=== PATIENT | female | born 2000 | race Hispanic/Latino ===

== ENCOUNTER 2019-01-27 01:49 | Emergency (ER) | payer MEDICAID ==
[2019-01-27 02:21] VITALS: BP 111/77; PULSE 85; RESP 16; TEMP 98.2; O2SAT 100
--- NOTE | 2019-01-27 02:38 | ED PDOC ---
HPI: Abdomen Time Seen by Provider: 01/27/19 02:25 Chief Complaint (Nursing): Abdominal Pain Chief Complaint (Provider): abdominal pain History Per: Patient History/Exam Limitations: no limitations Onset/Duration Of Symptoms: Days (2) Current Symptoms Are (Timing): Still Present Location Of Pain/Discomfort: RLQ, LLQ, Suprapubic Quality Of Discomfort: Cramping Associated Symptoms: Nausea Additional Complaint(s): 18 y/o female presents for evaluation of lower abdominal pain x 2 days. Associa becca nausea. Patient states she has not had her menstrual period since the beginning of September; states she was evaluated by her Test Clerk at [place] and had an ultrasound and was told everything was normal. Denies fever, headache, vomiting, chest pain, shortness of breath, palpitations, urinary symptoms, vaginal bleeding/discharge. Past Medical History Reviewed: Historical Data, Nursing Documentation, Vital Signs Vital Signs: Last Vital Signs Temp 98.2 F 01/27/19 02:18 Pulse 85 01/27/19 02:18 Resp 16 01/27/19 02:18 BP 111/77 01/27/19 02:18 Pulse Ox 100 01/27/19 02:18 Primary Care Provider: FAMILY PROVIDER,NO - Medical History PMH: Anemia - Surgical History Other surgeries: Gastric bypass 03/2017 - Family History Family History: States: No Known Family Hx - Home Medications Home Medications: Ambulatory Orders Medication Instructions Recorded No Known Home Med 01/19/19 - Allergies Allergies/Adverse Reactions: Allergies Allergy/AdvReac Type Severity Reaction Status Date / Time peanut Allergy Severe ANAPHYLAXIS Verified 01/19/19 14:33 shellfish derived Allergy Severe SWELLING Verified 01/19/19 14:33 ibuprofen [From Motrin] Allergy Intermediate SWELLING Verified 01/19/19 14:33 pomegranate Allergy Intermediate SWELLING Verified 01/19/19 14:33 Review of Systems ROS Statement: Except As Marked, All Systems Reviewed And Found Negative Gastrointestinal: Positive for: Nausea, Abdominal Pain Physical Exam - Reviewed Nursing Documentation Reviewed: Yes Vital Signs Reviewed: Yes - Physical Exam Appears: Positive for: Well, Non-toxic, No Acute Distress Head Exam: Positive for: ATRAUMATIC, NORMAL INSPECTION, NORMOCEPHALIC Skin: Positive for: Normal Color Eye Exam: Positive for: Normal appearance ENT: Positive for: Normal ENT Inspection Cardiovascular/Chest: Positive for: Regular Rate, Rhythm Respiratory: Positive for: Normal Breath Sounds Gastrointestinal/Abdominal: Positive for: Bowel Sounds, Soft, Tenderness (diffuse lower pelvic discomfort to palpation). Negative for: Distended, Guarding, Rebound Back: Positive for: Normal Inspection Extremity: Positive for: Normal ROM Neurological/Psych: Positive for: Awake, Alert, Oriented (x3) - Laboratory Results Result Diagrams: 01/27/19 02:59 01/27/19 02:59 - ECG O2 Sat by Pulse Oximetry: 100 - Progress ED Course And Treament: -upreg -udip -cbc -cmp -urinalysis -PO tylenol Patient eating yakut fish, cracker on re-eval, texting on phone Chart reviewed, patient had work up for similar symptoms on 01/19/19, including ultrasound which did not show acute findings Normal WBC, afebrile, sleeping currently; no imaging indicated at this time Upon awakening patient reports improvement of symptoms Patient was advised to follow up with her Test Clerk for further evaluation of ongoing symptoms Return precautions given Disposition - Clinical Impression Clinical Impression: Abdominal cramps, Missed menses - Patient ED Disposition Is Patient to be Admitted: No Counseled Patient/Family Regarding: Studies Performed, Diagnosis, Need For Followup - Disposition Disposition: Routine/Home Disposition Time: 04:20 Condition: IMPROVED Instructions: Acute Pelvic Pain, Absent or Irregular Periods
[2019-01-27 03:01] LABS: SQUAMOUS EPITHIAL 3 /hpf (0-5); URINE BILIRUBIN NEGATIVE (NEGATIVE); URINE BLOOD NEGATIVE (NEGATIVE); URINE CLARITY SLIGHTY-CLOUDY (Clear); URINE COLOR YELLOW (YELLOW); URINE GLUCOSE (UA) NEG (NEGATIVE); URINE LEUKOCYTE ESTERASE NEG Leu/uL (Negative); URINE PROTEIN NEGATIVE (NEGATIVE); URINE UROBILINOGEN 0.2-1.0 mg/dL (0.2-1.0)
[2019-01-27 03:11] LABS: BASO # 0.1 K/uL (0.0-0.2); BASO % 0.8 % (0.0-2.0); EOS # 0.1 K/uL (0.0-0.7); EOS % 1.5 % (0.0-4.0); HEMOGLOBIN 9.4 g/dL (12.0-16.0); LYMPH # 2.7 K/uL (1.0-4.3); LYMPH % 29.4 % (20.0-40.0); MEAN CELL VOLUME 71.1 fl (81.0-99.0); MEAN CORPUSCULAR HEMOGLOBIN 21.6 pg (27.0-31.0); MEAN CORPUSCULAR HGB CONC 30.3 g/dL (33.0-37.0); MEAN PLATELET VOLUME 7.1 fl (7.2-11.7); MONO # 0.8 K/uL (0.0-0.8); MONO % 8.5 % (0.0-10.0); NEUT # 5.5 K/uL (1.8-7.0); NEUT % 59.8 % (50.0-75.0); RBC 4.37 Mil/uL (3.80-5.20); RED CELL DISTRIBUTION WIDTH 18.2 % (11.5-14.5); WHITE BLOOD COUNT 9.3 K/uL (4.8-10.8)
[2019-01-27] MEDS: Sodium Chloride 0.9% 1,000 ML IV STA (03:18)
[2019-01-27 03:20] LABS: ALB/GLOB RATIO 1.1 (1.0-2.1); ALBUMIN 3.8 g/dL (3.5-5.0); ALT/SGPT 26 U/L (9-52); AST/SGOT 21 U/L (14-36); BLOOD UREA NITROGEN 19 mg/dl (7-17); CALCIUM 8.9 mg/dL (8.4-10.2); GFR NON-AFRICAN AMERICAN > 60
== END 2019-01-27 04:35 | disposition home or self-care (01) ==
LOC: MERGE 01:49 → H.ER 01:49
DX: R10.2 Pelvic and perineal pain (principal); N91.2 Amenorrhea, unspecified
CPT/HCPCS: 80053; 81003; 81025; 85025; 87070; 87491; 87591; 96361; 96374; 99283; J2405; J7030